=== PATIENT | male | born 1975 | race African-American/Black ===

== ENCOUNTER 2017-08-03 14:06 | Emergency (ER) | payer SELFPAY ==
[~2017-08-03] VITALS: Ht 172.7 cm; Wt 70.0 kg
[2017-08-03] MEDS ORDERED: OLANZAPINE 10 MG/VIAL IM ONE ×2 (14:45→20:45)
[2017-08-03 15:08] LABS: BASOPHILS % 0.5 % (0.0-2.0); EOSINOPHILS % 0.4 % (0.0-5.0); HEMATOCRIT. 41.1 % (42.0-52.0); HEMOGLOBIN. 13.7 g/dL (14.0-18.0); MEAN CORPUSCULAR HEMOGLOBIN 30.1 pg (28.0-32.0); MEAN CORPUSCULAR VOLUME 89.9 fL (80.0-94.0); MEAN PLATELET VOLUME 9.1 fl (7.4-10.4); MONOCYTES % 7.2 % (2.0-8.0); NEUTROPHILS % 62.9 % (40.0-76.0); PLATELET 199 x1000/uL (130-400); RED BLOOD CELL COUNT 4.57 mill/uL (4.7-6.1); RED CELL DISTRIBUTION WIDTH 11.9 % (11.6-14.6)
[2017-08-03 15:11] LABS: CHLORIDE 109 mEq/L (98-107)
[2017-08-03 15:15] LABS: ETHANOL BLOOD < 10 mg/dL
[2017-08-03 18:07] LABS: CLARITY URINE CLEAR (CLEAR); COLOR URINE YELLOW (YELLOW); KETONES URINE NEGATIVE (NEGATIVE); LEUKOCYTE ESTERASE URINE NEGATIVE (NEGATIVE); NITRITE URINE NEGATIVE (NEGATIVE); OCCULT BLOOD URINE NEGATIVE (NEGATIVE); PH URINE 5.5 (4.5-8.0); PROTEIN URINE NEGATIVE (NEGATIVE); SPECIFIC GRAVITY URINE 1.012 (1.005-1.030)
[2017-08-03 18:17] LABS: *AMPHETAMINES SCREEN URINE NEGATIVE (NEGATIVE); *BARBITURATES SCREEN URINE NEGATIVE (NEGATIVE); *BENZODIAZEPINES SCREEN URINE NEGATIVE (NEGATIVE); *COCAINE SCREEN URINE NEGATIVE (NEGATIVE); METHADONE URINE SCREEN NEGATIVE (NEGATIVE)
[2017-08-03 18:18] LABS: CANNABINOID URINE SCREEN PRESUMTIVE POSITIVE (NEGATIVE); OPIATES URINE SCREEN NEGATIVE (NEGATIVE); PHENCYCLIDINE URINE SCREEN NEGATIVE (NEGATIVE)
[2017-08-04] MEDS ORDERED: LORAZEPAM 2MG/ML CPJ IM ONE (01:15)
[2017-08-04] MEDS ORDERED: HALOPERIDOL LACTATE 5MG/ML VIAL IM ONE (01:15)
[2017-08-04 16:56] VITALS: BP 108/75
== END 2017-08-04 19:17 ==
LOC: ER 14:42 → ENRESERV 19:57 → CANRESERV 19:57 → CANBEDREQ 20:05 → ER 08-04 19:17
DX: F23 Brief psychotic disorder (principal); F11.10 Opioid abuse, uncomplicated; R45.1 Restlessness and agitation
CPT/HCPCS: 36415; 80053; 80305; 80307; 80329; 81003; 85025; 96372; 99285; G0482; J1630; J2060; J3490